=== PATIENT | female | born 1980 | race Caucasian/White ===

== ENCOUNTER 2019-02-26 00:23 | Emergency (ER) | payer OTHER ==
[~2019-02-26] VITALS: Ht 167.6 cm; Wt 68.0 kg
[2019-02-26] MEDS ORDERED: VISTARIL25 MG PO (06:02)
== END 2019-02-26 06:16 | disposition home or self-care (01) ==
LOC: ER 00:23
DX: R07.89 Other chest pain (principal); M94.0 Chondrocostal junction syndrome [Tietze]; F06.4 Anxiety disorder due to known physiological condition

== ENCOUNTER → 2019-03-01 | Outpatient (CLI) | payer OTHER ==
[~2019-03-01] MED LIST: VISTARIL25 MG PO
== END | disposition home or self-care (01) ==
LOC: RAD 14:31 → MAMO-SONO 14:45
DX: E03.8 Other specified hypothyroidism (principal); R05 Cough

== ENCOUNTER 2021-03-18 18:45 | Emergency (ER) | payer OTHER ==
[~2021-03-18] VITALS: Ht 167.6 cm; Wt 62.1 kg
[2021-03-19] MEDS ORDERED: SURFAK240 M1 PO (01:13)
== END 2021-03-19 01:19 | disposition home or self-care (01) ==
LOC: ER 18:45
DX: K59.09 Other constipation (principal)